=== PATIENT | male | born 1990 | race Caucasian/White ===

== ENCOUNTER 2024-08-24 10:58 | Outpatient (CLI) | payer BC, SELFPAY ==
--- NOTE | 2024-08-24 12:04 | W.ANESCHARGE ---
Anesthesia Charges Start Date/Time Anesthesia Start Date: 08/24/24 Anesthesia Start Time: 11:40 Stop Date/Time Anesthesia Stop Date: 08/24/24 Anesthesia Stop Time: 12:05
== END 2024-08-24 10:59 | disposition home or self-care (01) ==
LOC: OP CLINIC 11:02
PROVIDERS: Referring Provider Surgery; Visit Provider Internal Medicine
DX: K92.1 Melena (principal); D12.5 Benign neoplasm of sigmoid colon; K64.9 Unspecified hemorrhoids
CPT/HCPCS: 00811; 45380; 88305; J2704